=== PATIENT | male | born 1965 | race Caucasian/White ===

== ENCOUNTER 2023-07-19 07:38 | Emergency (ER) | payer BC ==
[2023-07-19] MEDS ORDERED: Lidocaine 1% (PF) 30 ML VIAL ONE (08:07)
[2023-07-19] MEDS ORDERED: Boostrix 0.5 ML (Tdap) VIAL (>/=7 yrs of age) ONE (08:07)
[2023-07-19] MEDS ORDERED: Bacitracin 1 PK ONE (08:44)
[2023-07-19] MEDS ORDERED: Ketorolac Tromethamine 10 MG TAB ONE (08:56)
== END 2023-07-19 09:00 | disposition home or self-care (01) ==
LOC: MADERS 07:38
DX: S01.111A Laceration without foreign body of right eyelid and periocular area, initial encounter (principal); I10 Essential (primary) hypertension; F17.220 Nicotine dependence, chewing tobacco, uncomplicated; Z23 Encounter for immunization; Z79.899 Other long term (current) drug therapy; W06.XXXA Fall from bed, initial encounter; W22.8XXA Striking against or struck by other objects, initial encounter
CPT/HCPCS: 12011; 90471; 90715; J2001

== ENCOUNTER 2023-10-30 14:53 | Emergency (ER) | payer BC ==
[2023-10-30] MEDS ORDERED: Acetaminophen 500 MG TAB ONE (15:33)
[2023-10-30] MEDS ORDERED: Ondansetron PF 4 MG/2 ML Vial ONE (15:33)
[2023-10-30] MEDS ORDERED: Sodium Chloride 0.9% 500 ML ONE ×2 (15:33→17:01)
[2023-10-30 15:55] LABS: Band 11 % (5-11); Lymphocytes 1 % (21-51); MDiff Complete? YES; Mean Corpuscular HGB CONC 30.5 g/dL (32.0-36.0); Mean Corpuscular Hemoglobin 26.6 pg (27.0-31.0); Mean Corpuscular Volume 87.2 fl (78.0-98.0); Monocytes 2 % (0-10); Neutrophil 86 % (42-75); Platelet Adequacy Comment Appears Adequate; Platelet Count 199 10x3/uL (130-400); RBC Distribution Width 13.1 % (11.5-14.5); Red Blood Cell (RBC) Count 5.62 mill/uL (4.70-6.10); White Blood Cell (WBC) Count 10.6 10x3/uL (4.8-10.8)
[2023-10-30 15:59] LABS: ALT (SGPT) 134 U/L (8-55); AST (SGOT) 54 U/L (5-34); Albumin 3.7 g/dL (3.5-5.0); Alkaline Phosphatase 93 U/L (40-110); Anion Gap 16 mmol/L (10-20); BUN (Urea Nitrogen) 8 mg/dL (8.4-25.7); Bilirubin, Total 1.8 mg/dL (0.2-1.2); CK (CPK) 49 U/L (30-200); Calc. Creatinine Clearance 0 mL/min (70-130); Calcium 8.7 mg/dL (7.8-10.44); Carbon Dioxide 21 mmol/L (22-29); Chloride 102 mmol/L (98-107); Estimated GFR 62; Globulin 2.7 g/dL (2.4-3.5); Glucose 150 mg/dL (70-105); Magnesium 1.9 mg/dL (1.6-2.6); Potassium 3.8 mmol/L (3.5-5.1); Protein, Total 6.4 g/dL (6.0-8.3); Sodium 135 mmol/L (136-145)
[2023-10-30 16:29] LABS: SARS-CoV-2 E Target Negative; SARS-CoV-2 N2 Target Negative; SARS-CoV-2 NAA Rapid Test Not Detected (NotDetected); SARS-CoV-2 RdRP gene Negative
[2023-10-30] MEDS ORDERED: Ketorolac Tromethamine 30 MG (1 mL) VIAL ONE (16:49)
== END 2023-10-30 17:50 | disposition home or self-care (01) ==
LOC: MADERS 14:53
DX: E86.0 Dehydration (principal); N17.9 Acute kidney failure, unspecified; J06.9 Acute upper respiratory infection, unspecified; I51.7 Cardiomegaly; R74.01 Elevation of levels of liver transaminase levels; I10 Essential (primary) hypertension; F17.220 Nicotine dependence, chewing tobacco, uncomplicated; Z79.899 Other long term (current) drug therapy
CPT/HCPCS: 36415; 71045; 80053; 82550; 83605; 83735; 83880; 85025; 87040; 87804; 96374; J1885; J2405; J7030; U0002